=== PATIENT | female | born 1965 | race Caucasian/White ===

== ENCOUNTER 2023-02-16 11:04 | Emergency (ER) | payer OTHER, SELFPAY ==
[2023-02-16] VITALS (11 sets, daily range): BP systolic 151–193; BP diastolic 88–95; PULSE 67–89; RESP 17–20; TEMP 36.4–36.7; O2SAT 96–98
--- NOTE | ~2023-02-16 | CT_ITS ---
EXAMINATION: CT brain wo con DATE: 02/16/2023 11:38 INDICATION: Blurred vision. Kaleidoscope vision. TECHNIQUE: Computed tomography (CT) of the head was performed without intravenous contrast. The mA wa s adjusted according to patient size. Iterative reconstruction technique was employed. The dose-lengt h product was 681.00 mGy-cm. COMPARISON: None FINDINGS: There is no intracranial hemorrhage, acute infarction, or abnormal intracranial mass lesion . The ventricles are normal in size. The orbits are normal. The paranasal sinuses are clear. The mast oid air cells are normal. IMPRESSION: 1. Normal brain. Reviewed, dictated and finalized at location A. IMPRESSION: 1. Normal brain.
--- NOTE | 2023-02-16 11:16 | ECG_ITS ---
Measurements Intervals [place] Rate: 72 P: 66 [place]: 157 QRS: 15 QRSD: 90 T: 24 QT: 377 QTc: 413 Interpretive Statements SINUS RHYTHM NORMAL ECG NO PREVIOUS ECG AVAILABLE FOR COMPARISON Electronically Signed On 02-16-2023 16:44:21 CDT by Varinder Richter D.O.
--- NOTE | 2023-02-16 11:40 | PC.NURSE ---
RN verifed with ERP that he still would like the 50mg Metoprolol given with current blood pressure of 158/106 and heart rate of 70. he states to continue with administration as ordered.
[2023-02-16] MEDS: METOPROLOL TARTRATE 50 MG TAB PO (11:42)
[2023-02-16 12:12] LABS: Alanine Aminotransferase 33 U/L (14-59); Albumin Level 4.3 g/dL (3.4-5.0); Alkaline Phosphatase 100 U/L (46-116); Anion Gap 8 mmol/L (8-16); Aspartate Amino Transferase 17 U/L (15-37); Bilirubin,Total 0.4 mg/dL (0.00-1.00); Blood Urea Nitrogen 14 mg/dL (7-18); Calcium 9.4 mg/dL (8.5-10.1); Carbon Dioxide 30 mmol/L (21-32); Chloride 102 mmol/L (98-108); Estimated CRCL calculation 65 ml/min; Estimated Glomerular Filt Rate > 60; Glucose 98 mg/dL (70-99); Osmolality Calculated 290 mOsm/kg (285-295); Potassium 3.9 mmol/L (3.5-5.1); Sodium 140 mmol/L (136-145); Total Protein 8.2 g/dL (6.4-8.2)
--- NOTE | 2023-02-16 12:21 | ED.EYEPROB ---
HPI - Eye Problem General Chief complaint: Eye Problems Stated complaint: Blurred vision Time Seen by Provider: 02/16/23 11:09 Source: patient and family Mode of arrival: ambulatory Limitations: no limitations History of Present Illness HPI Narrative: this is a 57-year-old female with history of arrhythmia and is currently on metoprolol, presents with some flashing light in her left eye that she states has almost resolved since she has been here she has some sinus congestion and ringing in her ears with no nasal drainage no shortness of breath no fever chills no neurological deficits no nausea vomiting no chest pain no abdominal pain no dysuria. chief complaint: vision change Onset (ago): hour(s) Onset description: gradual Duration: improved Location: left eye Related Data Home Medications Medication Instructions Recorded Confirmed metoprolol succinate 25 mg 25 mg PO DAILY 02/16/23 02/16/23 tablet,extended release 24 hr Allergies Allergy/AdvReac Type Severity Reaction Status Date / Time No Known Allergies Allergy Verified 02/16/23 11:10 Review of Systems Review of Systems: All systems reviewed & are unremarkable except as noted in HPI and below PMFSH Past Medical History Medical History Arrhythmia Exam Const: General: healthy appearing Nutritional Appearance: well nourished Orientation/consciousness: patient oriented x3 Limitations: no limitations HENMT: Head: normal to inspection Eyes: Conjunctivae: conjunctivae normal Neck: Neck: normal visual inspection Chest: Chest palpation & inspection: normal inspection of the chest Resp: Effort & Inspection: normal respiratory effort Auscultation: clear to auscultation bilaterally Cardio: Rate: regular rate Rhythm: regular rhythm Skin: General skin exam: normal color Rashes: no rashes Wounds: no wounds Neuro: General: patient oriented x3, moves all extremities, no meningeal signs, no focal motor deficits and CN's II-XI intact bilaterally Cranial nerves: Yes Nystagmus not present Speech: normal speech Gait exam (Neuro): Normal gait present Extrem: General: normal to inspection Psych: Mental Status: mental status grossly normal Affect: normal affect Course Course Emergency Course: patient with an elevated blood pressure initially of 193/95 when she initially presented the patient did received a p.o. dose of 50mg metoprolol current blood pressure 158/88 with heart rate of 70, the patient currently on 25mg of metoprolol and would advise her to increase her dose to50mg and follow with her primary in 1 week for further evaluation of her blood pressure. Patient had a CT scan of the brain which showed normal brain, EKG showed normal sinus rhythm and had a CMP which showed no abnormalities. Otherwise the patient after re-evaluation her visual changes have resolved or improved. Vital Signs Vital signs: Vital Signs Temperature 36.6 C 02/16/23 11:06 Pulse Rate 82 02/16/23 11:06 Respiratory Rate 20 02/16/23 11:06 Blood Pressure 193/95 H 02/16/23 11:06 Pulse Oximetry 96 02/16/23 11:06 Oxygen Delivery Room Air 02/16/23 11:06 Temperature 36.7 C 02/16/23 11:12 Pulse Rate 70 02/16/23 11:42 Respiratory Rate 17 02/16/23 11:12 Blood Pressure 158/88 H 02/16/23 12:01 Pulse Oximetry 97 02/16/23 12:01 Oxygen Delivery Room Air 02/16/23 11:12 MDM - Eye Problem Lab Data 02/16/23 11:47 Labs: Lab Results 02/16/23 Range/Units 11:47 Sodium 140 (136-145) mmol/L Potassium 3.9 (3.5-5.1) mmol/L Chloride 102 (98-108) mmol/L Carbon Dioxide 30 (21-32) mmol/L Anion Gap 8 (8-16) mmol/L BUN 14 (7-18) mg/dL Creatinine 0.69 (0.55-1.02) mg/dL Estim Creat Clear Calc 65 ml/min Estimated GFR > 60 (59 - ) Glucose 98 (70-99) mg/dL Calculated Osmolality 290 (285-295) mOsm/kg Calcium 9.4 (8.5-10.1) mg/dL Total Bi
== END 2023-02-16 12:37 | disposition home or self-care (01) ==
PROVIDERS: Emergency Provider Emergency Medicine
DX: I10 Essential (primary) hypertension (principal)
CPT/HCPCS: 36415; 70450; 80053; 93005; 99284; A9270